=== PATIENT | female | born 1950 | race Caucasian/White ===

== ENCOUNTER 2020-08-24 06:46 | Inpatient (IN) | payer MEDICARE, OTHER ==
[2020-08-20 15:36] VITALS: BMI 32.4
[2020-08-24] MEDS ORDERED: Vancomycin 1.5 GRAM/300 ML BAG ONE (08:03)
[2020-08-24] MEDS ORDERED: Tranexamic Acid 1,000 MG/10 ML VIAL ONE ×2 (08:03→12:37)
[2020-08-24] MEDS ORDERED: Sodium Chloride 0.9% 100 ML ONE (08:03)
[2020-08-24] MEDS ORDERED: Fentanyl 100 MCG/2 ML VIAL ONE ×3 (08:43→12:24)
[2020-08-24] MEDS ORDERED: EPINEPHrine 1 MG/ML AMP ONE (08:43)
[2020-08-24] MEDS ORDERED: Midazolam HCl 2 mg/2 ml Vial ONE (08:43)
[2020-08-24] MEDS ORDERED: Fentanyl 100 MCG/2 ML VIAL IV PRN (09:35)
[2020-08-24] MEDS ORDERED: Bupivacaine PF 0.5% 30 ML VIAL ONE (09:38)
[2020-08-24] MEDS ORDERED: Promethazine HCl 25 MG/ML VIAL IM PRN ×2 (09:45→10:07)
[2020-08-24] MEDS ORDERED: Ondansetron PF 4 MG/2 ML Vial IVP PRN ×2 (09:45→10:07)
[2020-08-24] MEDS ORDERED: Ropivacaine HCl/PF 250 ML in Premix Bag 1 BAG NERVE BLCK SCH (09:45)
[2020-08-24] MEDS ORDERED: HYDROcodone/Acetaminophen 10/325 mg Tablet PO PRN (09:45)
[2020-08-24] MEDS ORDERED: traMADol HCl 50 MG TAB PO PRN ×2 (09:45)
[2020-08-24] MEDS ORDERED: Zolpidem Tartrate 5 MG TAB PO PRN ×2 (09:45→10:07)
[2020-08-24] MEDS ORDERED: Ketorolac Tromethamine 30 MG/ML VIAL ONE (09:50)
[2020-08-24] MEDS ORDERED: Dexamethasone 20 MG/5 ML VIAL ONE (09:50)
[2020-08-24] MEDS ORDERED: PROPOFOL 200 MG/20 ML VIAL ONE (09:50)
[2020-08-24] MEDS ORDERED: PHENYLEPHRINE-NS 100 MCG/ML 10 ML SYRINGE ONE (09:50)
[2020-08-24] MEDS ORDERED: Rocuronium Bromide 10 MG/ML (10ML VIAL) ONE (09:50)
[2020-08-24] MEDS ORDERED: Ondansetron PF 4 MG/2 ML Vial ONE (09:50)
[2020-08-24] MEDS ORDERED: Bupivacaine HCl 0.5%/Epinephrine 1:200,000/PF 30 ml Vial ONE (09:50)
[2020-08-24] MEDS ORDERED: Ropivacaine 2% HCl/PF (20 MG/10 ML VIAL) ONE (09:50)
[2020-08-24] MEDS ORDERED: diphenhydrAMINE 25 MG CAP PO PRN (10:07)
[2020-08-24] MEDS ORDERED: Acetaminophen 325 MG TAB PO PRN (10:07)
[2020-08-24] MEDS ORDERED: Tranexamic Acid 1,000 MG in Sodium Chloride 0.9% 100 ML IVPB SCH (10:15)
--- NOTE | 2020-08-24 12:19 | OP ---
DATE OF PROCEDURE: 08/24/2020 VEHICLE COST ENGINEER: Wm Simons PA-C. The temporary administrative assistant surgeon was present throughout the procedure to include the approach, placement of new implants, and closure of the knee. PREOPERATIVE DIAGNOSIS: Left knee osteoarthrosis. POSTOPERATIVE DIAGNOSIS: Left knee osteoarthrosis. PROCEDURE: Left total knee replacement using Ferdinand pinless navigation. ANESTHESIA: She had general anesthetic. She also had a preoperative block. BLOOD LOSS: Minimal. COMPLICATIONS: None. TOURNIQUET TIME: DISPOSITION: She went to recovery room in stable condition. IMPLANTS: To the left knee include Melvi Triathlon total knee system. The femur was a size 5 cruciate retaining femur. We used a size 5 primary tibial baseplate. We used a 5 x 9 mm CS-X3 tibial bearing, and we used a 29 x 9 X3 patella implant. INDICATIONS: This is a 70-year-old female who has failed nonoperative treatment for severe left knee osteoarthrosis. At this time, she wished to have her knee replaced. PROCEDURE IN DETAIL: After all appropriate consent forms were explained and signed, the patient was taken back to the operating room and at this time was given general anesthetic. Once the level of anesthesia was appropriate, a well-padded tourniquet was placed on the left leg, and the leg was then prepped and draped in standard surgical fashion. The limb was exsanguinated and tourniquet taken up to 300 mmHg. Midline incision was made with a 10 blade down through the skin and subcutaneous tissue. Bovie electrocautery was used to coagulate any brisk venous bleeding. A new blade was used to make a medial parapatellar arthrotomy. Small subperiosteal release was performed medially and excess fat pad was removed. The knee was flexed up to gain access to the femur. The femur was navigated and distal femoral resection was made. Epicondylar access was used to align our sizing jig and this was pinned in place. We sized our femur to be a 5 cruciate retaining femur. 4:1 cutting block was applied and pinned. Anterior and posterior chamfer cuts were then made. We navigated out our proximal tibia and made our proximal tibial resection. Spreaders were used to remove any posterior osteophytes off the back of the femur as well as remaining meniscal tissue. A long alignment teresa was then used to achieve correct rotation of our tibial baseplate and a size 5 was chosen. This was pinned in place. We trialed the polyethylene and a 5 x 9 mm CS-X3 tibial bearing polyethylene gave us full extension and good stability throughout range of motion. Two towel clips and a saw were used to cut our patella. Three lug nuts were drilled and 29 x 9 X3 patella was trialed which sat nicely in the trochlear groove. We then drilled our femur and punched our tibia. All components were removed. The knee was thoroughly irrigated and dried. Cement was mixed into the cement gun on the back table. Components were then placed. The knee was held out in full extension until the cement had dried. All excess bone cement was removed. Multiple #2 Vicryl stitches as well as a Quill were used to close our extensor mechanism. 0 Quill followed by a running Monoderm was then used to close the skin. Surgicel glue was then used on the skin. Once this had dried, soft tissue dressing was applied to the limb, tourniquet was let down, and the toes pinked up nicely. The patient was then awakened and taken to the recovery room in stable condition. All counts were correct at the end of the case. The patient did receive preoperative IV antibiotics. Job ID: [id number]
[2020-08-24] MEDS: Ketorolac Tromethamine 30 MG/ML VIAL IVP SCH ×3 (13:41→23:05)
[2020-08-24] MEDS: HYDROcodone/Acetaminophen 10/325 mg Tablet PO PRN (14:25)
[2020-08-24] MEDS: Sodium Chloride 0.9% 1,000 ML IV SCH ×2 (14:26→21:26)
[2020-08-24] MEDS: CEFAZOLIN 2 GM in Premix Bag 1 BAG IVPB SCH (18:44)
[2020-08-24] MEDS ORDERED: Vancomycin HCl 1.5 GM in Sodium Chloride 0.9% 250 ML 300 ML IVPB SCH (20:00)
[2020-08-24] MEDS ORDERED: Vancomycin 1.5 GRAM/300 ML BAG 1.5 GM in Premix Bag 1 BAG IVPB SCH (20:00)
[2020-08-24] MEDS: Aspirin 81 mg Enteric Coated Tablet PO SCH (20:19)
[2020-08-24] MEDS: Senokot S 8.6-50 MG TAB PO SCH (20:19)
[2020-08-24] MEDS: Ferrous Gluconate 324 MG TAB PO SCH (20:19)
[2020-08-25] MEDS: CEFAZOLIN 2 GM in Premix Bag 1 BAG IVPB SCH (02:02)
[2020-08-25] MEDS: Ketorolac Tromethamine 30 MG/ML VIAL IVP SCH ×4 (05:29→23:21)
[2020-08-25] MEDS: Levothyroxine Sodium 25 MCG TAB PO SCH (05:29)
[2020-08-25 06:15] LABS: Hemoglobin 10.5 g/dL (12.0-16.0); Mean Corpuscular HGB CONC 33.3 g/dL (32.0-36.0); Mean Corpuscular Hemoglobin 33.4 pg (27.0-31.0); Mean Platelet Volume 8.5 fL (7.4-10.4); Platelet Count 172 thou/uL (130-400); RBC Distribution Width 12.8 % (11.5-14.5); Red Blood Cell (RBC) Count 3.15 mill/uL (4.20-5.40); White Blood Cell (WBC) Count 7.5 thou/uL (4.8-10.8)
[2020-08-25] MEDS: Sodium Chloride 0.9% 1,000 ML IV SCH ×2 (06:23→16:08)
--- NOTE | 2020-08-25 08:23 | PRG ---
DATE OF SERVICE: 08/25/2020 SUBJECTIVE: Camille is a 70-year-old female, postop day 1 left total knee arthroplasty. She has no complaints. She is sitting up, eating breakfast and quite comfortable. OBJECTIVE: VITAL SIGNS: Temperature 97.7, pulse 60, respiratory rate 18 and nonlabored, blood pressure is 106/61. GENERAL: She is alert and oriented to person, place, time, situation, responsive, appropriate and conversive with examiner. EXTREMITIES: Incision is clean. No strike through. No erythema. Neurovascularly intact in left lower extremity. LABORATORY DATA: Hemoglobin and hematocrit 10.5 and 31.6. IMPRESSION: A 70-year-old female, postop day 1 left total knee arthroplasty. PLAN: Continue current care. Initiate physical therapy. Continue to monitor for pain and hemorrhage. Job ID: [id number]
[2020-08-25] MEDS: Senokot S 8.6-50 MG TAB PO SCH ×2 (08:46→20:18)
[2020-08-25] MEDS: Ferrous Gluconate 324 MG TAB PO SCH ×2 (08:47→20:18)
[2020-08-25] MEDS: Multivitamin W/ Minerals 1 TAB PO SCH (08:48)
[2020-08-25] MEDS: Furosemide 20 MG TAB PO SCH (08:48)
[2020-08-25] MEDS: Aspirin 81 mg Enteric Coated Tablet PO SCH ×2 (08:48→20:18)
[2020-08-25] MEDS: Triamterene/Hydrochlorothiazide 37.5 mg/25 mg Tablet PO SCH (08:56)
[2020-08-25] MEDS: HYDROcodone/Acetaminophen 10/325 mg Tablet PO PRN ×3 (10:39→21:42)
[2020-08-25] MEDS: Potassium Chloride 10 MEQ TAB PO SCH (11:01)
[2020-08-25] MEDS: Calcium Carbonate 500 MG ChewTAB PO PRN (23:26)
[2020-08-26] MEDS: Sodium Chloride 0.9% 1,000 ML IV SCH ×3 (04:45→22:24)
[2020-08-26] MEDS: Ketorolac Tromethamine 30 MG/ML VIAL IVP SCH (05:14)
[2020-08-26] MEDS: Levothyroxine Sodium 25 MCG TAB PO SCH (05:14)
[2020-08-26] MEDS: Calcium Carbonate 500 MG ChewTAB PO PRN ×2 (05:18→17:48)
[2020-08-26 06:29] LABS: Hemoglobin 10.1 g/dL (12.0-16.0); Mean Corpuscular HGB CONC 33.4 g/dL (32.0-36.0); Mean Corpuscular Hemoglobin 33.6 pg (27.0-31.0); Mean Platelet Volume 9.7 fL (7.4-10.4); Platelet Count 118 thou/uL (130-400); RBC Distribution Width 12.9 % (11.5-14.5); Red Blood Cell (RBC) Count 3.01 mill/uL (4.20-5.40); White Blood Cell (WBC) Count 6.4 thou/uL (4.8-10.8)
[2020-08-26] MEDS: Ferrous Gluconate 324 MG TAB PO SCH ×2 (07:58→20:59)
[2020-08-26] MEDS: Triamterene/Hydrochlorothiazide 37.5 mg/25 mg Tablet PO SCH (07:58)
[2020-08-26] MEDS: Aspirin 81 mg Enteric Coated Tablet PO SCH ×2 (07:58→20:59)
[2020-08-26] MEDS: Furosemide 20 MG TAB PO SCH (07:58)
[2020-08-26] MEDS: Potassium Chloride 10 MEQ TAB PO SCH (07:59)
[2020-08-26] MEDS: Multivitamin W/ Minerals 1 TAB PO SCH (07:59)
[2020-08-26] MEDS: HYDROcodone/Acetaminophen 10/325 mg Tablet PO PRN ×3 (08:00→19:39)
[2020-08-26] MEDS: Senokot S 8.6-50 MG TAB PO SCH ×2 (13:41→20:59)
[2020-08-27] MEDS: HYDROcodone/Acetaminophen 10/325 mg Tablet PO PRN ×3 (02:45→13:35)
[2020-08-27] MEDS: Levothyroxine Sodium 25 MCG TAB PO SCH (05:25)
[2020-08-27 05:37] LABS: Hemoglobin 9.7 g/dL (12.0-16.0); Mean Corpuscular HGB CONC 33.4 g/dL (32.0-36.0); Mean Corpuscular Hemoglobin 33.4 pg (27.0-31.0); Mean Corpuscular Volume 99.8 fL (78.0-98.0); Platelet Count 152 thou/uL (130-400); RBC Distribution Width 12.7 % (11.5-14.5); Red Blood Cell (RBC) Count 2.89 mill/uL (4.20-5.40); White Blood Cell (WBC) Count 6.3 thou/uL (4.8-10.8)
[2020-08-27] MEDS: Sodium Chloride 0.9% 1,000 ML IV SCH (07:27)
--- NOTE | 2020-08-27 08:34 | PRG ---
DATE OF SERVICE: 08/27/2020 SUBJECTIVE: Camille is a 70-year-old female, postop day #3 from a left total knee arthroplasty. Her discharge was held yesterday due to persistent pain. She is tolerating a regular diet and she feels a little better today. OBJECTIVE: VITAL SIGNS: Temperature 98.1, pulse 68, respiratory rate 12 and nonlabored, blood pressure 107/67. GENERAL: She is alert and oriented to person, place, time, and situation. Responsive and appropriate with examiner. Conversive and polite and pleasant. EXTREMITIES: Incision is clean. No strike through. No erythema. She is neurovascularly intact in the left lower extremity. LABORATORY DATA: Hemoglobin and hematocrit of 9.7 and 28.9. IMPRESSION: A 70-year-old female, postop day #1, left total knee arthroplasty. PLAN: Continue current care. We will revisit the patient today in anticipation of discharge this afternoon. Job ID: [id number]
[2020-08-27] MEDS: Triamterene/Hydrochlorothiazide 37.5 mg/25 mg Tablet PO SCH (09:07)
[2020-08-27] MEDS: Senokot S 8.6-50 MG TAB PO SCH (09:07)
[2020-08-27] MEDS: Aspirin 81 mg Enteric Coated Tablet PO SCH (09:07)
[2020-08-27] MEDS: Potassium Chloride 10 MEQ TAB PO SCH (09:07)
[2020-08-27] MEDS: Ferrous Gluconate 324 MG TAB PO SCH (09:07)
[2020-08-27] MEDS: Multivitamin W/ Minerals 1 TAB PO SCH (09:07)
[2020-08-27] MEDS: Furosemide 20 MG TAB PO SCH (09:08)
[2020-08-27 14:18] VITALS: BP 135/83; TEMP 98
== END 2020-08-27 14:19 | disposition home health service (06) | DRG 470 ==
LOC: SDC 06:46 → SJJU 10:07 → SDC 08-26 13:55
PROVIDERS: ADMIT Orthopaedic Surgery; ATTEND Orthopaedic Surgery
PROC: 0SRD0J9 Replacement of Left Knee Joint with Synthetic Substitute, Cemented, Open Approach (ICD-10-PCS; principal; 2020-08-24)
PROC: 8E0YXBZ Computer Assisted Procedure of Lower Extremity (ICD-10-PCS; 2020-08-24)
DX: M17.12 Unilateral primary osteoarthritis, left knee (principal); I35.1 Nonrheumatic aortic (valve) insufficiency; E03.9 Hypothyroidism, unspecified; F41.9 Anxiety disorder, unspecified; K57.90 Diverticulosis of intestine, part unspecified, without perforation or abscess without bleeding; Z79.899 Other long term (current) drug therapy; Z88.5 Allergy status to narcotic agent; Z90.49 Acquired absence of other specified parts of digestive tract; Z90.710 Acquired absence of both cervix and uterus; Z82.49 Family history of ischemic heart disease and other diseases of the circulatory system; Z79.890 Hormone replacement therapy
CPT/HCPCS: 36415; 85027; C1713; C1776; J0171; J0690; J1100; J1885; J2250; J2405; J2704; J2795; J3010; J3370; J3490; S0020

== ENCOUNTER 2023-08-11 10:27 | Outpatient (CLI) | payer MEDICARE, OTHER | END 2023-08-11 10:28 | disposition home or self-care (01) | LOC: LABBT 10:27 | PROVIDERS: ATTEND Orthopaedic Surgery | DX: Z01.818 Encounter for other preprocedural examination (principal); M17.11 Unilateral primary osteoarthritis, right knee | CPT/HCPCS: 71046; 80048; 81003; 85025; 85610; 85730; 86850; 86900; 86901; 87081; 93005; 93010 ==

== ENCOUNTER 2023-08-16 05:46 | Observation (INO) | payer MEDICARE, OTHER ==
[2023-08-11 11:08] VITALS: BMI 33.3
[2023-08-11 12:25] LABS: #Eosinphils 0.2 10x3/uL (0.0-0.5); #Monocytes 0.5 10x3/uL (0.0-1.1); #Neutrophils 2.6 10x3/uL (1.5-8.4); %Basophils 0.7 % (0.0-2.0); %Eosinophils 4.2 % (0.0-6.0); %Lymphocytes 21.8 % (18.0-47.0); %Monocytes 11.9 % (0.0-10.0); %Neutrophils 61.2 % (40.0-75.0); Hematocrit 40.2 % (34.9-44.5); Hemoglobin 13.5 g/dL (12.0-15.5); Mean Corpuscular HGB CONC 33.6 g/dL (32.0-36.0); Mean Corpuscular Hemoglobin 32.5 pg (27.0-33.0); Mean Corpuscular Volume 96.9 fl (81.6-98.3); Mean Platelet Volume 11.5 fl (7.4-10.4); Platelet Count 247 10x3/uL (150-450); RBC Distribution Width 12.8 % (11.5-14.5); Red Blood Cell (RBC) Count 4.15 10x6/uL (3.90-5.03); White Blood Cell (WBC) Count 4.3 10x3/uL (3.5-10.5)
[2023-08-11 12:30] LABS: Bilirubin Neg (Negative); Blood, Urine Negative (Negative); Clarity Clear (Clear); Glucose, Urine (Dipstick) Normal (Negative); Ketone, Urine Negative (Negative); Leukocyte Negative (Negative); Nitrite Negative (Negative); Protein, Urine (Dipstick) Negative (Neg-Trace); Urobilinogen Normal mg/dL (Less than 2); pH, Urine 6.5 (5.0-9.0)
[2023-08-11 12:46] LABS: PTT 25.6 sec (22.0-33.0); Prothrombin Time 10.5 sec (9.5-12.1)
[2023-08-11 12:53] LABS: Anion Gap 17 mmol/L (10-20); BUN (Urea Nitrogen) 16 mg/dL (9.8-20.1); Calc. Creatinine Clearance 0 mL/min (70-130); Calcium 9.4 mg/dL (7.8-10.44); Carbon Dioxide 28 mmol/L (23-31); Chloride 99 mmol/L (98-107); Estimated GFR 80; Glucose 84 mg/dL (83-110); Potassium 3.8 mmol/L (3.5-5.1); Sodium 140 mmol/L (136-145)
[2023-08-16] MEDS ORDERED: Sodium Chloride 0.9% 100 ML ONE ×3 (06:06→10:07)
[2023-08-16] MEDS ORDERED: Vancomycin (BATCH) 1.5 GM/300 ML BAG ONE (06:06)
[2023-08-16] MEDS ORDERED: Tranexamic Acid 1,000 MG/10 ML VIAL ONE ×2 (06:06→10:06)
[2023-08-16] MEDS ORDERED: fentaNYL PF 100 MCG/2 ML SYRINGE ONE (06:22)
[2023-08-16] MEDS ORDERED: PROPOFOL 20 ML ONE (06:23)
[2023-08-16] MEDS ORDERED: Lidocaine 1% PF 5 ML VIAL ONE (06:23)
[2023-08-16] MEDS ORDERED: Dexamethasone 20 MG/5 ML VIAL ONE (06:23)
[2023-08-16] MEDS ORDERED: Ondansetron PF 4 MG/2 ML Vial ONE (06:23)
[2023-08-16] MEDS ORDERED: Midazolam HCl 2 mg/2 ml Vial ONE (06:23)
[2023-08-16] MEDS ORDERED: Lidocaine 2% 6 ML (Jelly) SYR ONE (06:24)
[2023-08-16] MEDS ORDERED: Bupivacaine PF 0.5% 30 ML VIAL ONE ×2 (06:33→07:55)
[2023-08-16] MEDS ORDERED: CEFAZOLIN 2 GM VIAL ONE (07:11)
[2023-08-16] MEDS ORDERED: traMADol HCl 50 MG TAB PO PRN ×2 (07:15)
[2023-08-16] MEDS ORDERED: Zolpidem Tartrate 5 MG TAB PO PRN ×2 (07:15→09:56)
[2023-08-16] MEDS ORDERED: Promethazine HCl 25 MG/ML VIAL IM PRN ×3 (07:15→09:56)
[2023-08-16] MEDS ORDERED: Ropivacaine 0.2% 550 ML 550 ML NERVE BLCK SCH (07:15)
[2023-08-16] MEDS ORDERED: EPINEPHrine 1 MG/ML VIAL ONE (07:55)
[2023-08-16] MEDS ORDERED: fentaNYL 50 mcg/mL 1 mL Vial ONE ×4 (08:27→10:54)
[2023-08-16] MEDS ORDERED: Ondansetron HCl/PF 4 MG/2 ML Vial IVP PRN (09:41)
[2023-08-16] MEDS ORDERED: HYDROmorphone 2 MG/ML VIAL SLOW IVP PRN (09:41)
[2023-08-16] MEDS ORDERED: Acetaminophen 325 MG TAB PO PRN (09:56)
[2023-08-16] MEDS ORDERED: diphenhydrAMINE 25 MG CAP PO PRN (09:56)
[2023-08-16] MEDS ORDERED: Ondansetron PF 4 MG/2 ML Vial IVP PRN (09:56)
[2023-08-16] MEDS ORDERED: Vancomycin 1.5 GM in Sodium Chloride 0.9% 250 ML 300 ML IVPB SCH (10:00)
[2023-08-16] MEDS ORDERED: Tranexamic Acid 1,000 MG in Sodium Chloride 0.9% 100 ML IVPB SCH (10:00)
[2023-08-16] MEDS ORDERED: HYDROmorphone 0.5 MG/0.5 ML SYRINGE ONE ×2 (10:16→10:30)
[2023-08-16] MEDS ORDERED: Ketorolac Tromethamine 30 MG (1 mL) VIAL ONE (11:27)
[2023-08-16] MEDS: Ketorolac Tromethamine 30 MG (1 mL) VIAL IVP SCH (11:30)
[2023-08-16] MEDS: Ondansetron PF 4 MG/2 ML Vial IVP PRN (13:37)
[2023-08-16] MEDS: fentaNYL 50 mcg/mL 1 mL Vial SLOW IVP PRN (13:37)
[2023-08-16] MEDS: Sodium Chloride 0.9% 1,000 ML IV SCH (13:39)
[2023-08-16] MEDS: CEFAZOLIN 2 GM in Sodium Chloride 0.9% 100 ML IVPB SCH (15:40)
[2023-08-16] MEDS: Vancomycin (BATCH) 1.5 GM in Premix 1 BAG IVPB SCH (17:48)
[2023-08-16] MEDS: Ferrous Gluconate 324 MG TAB PO SCH (19:56)
[2023-08-16] MEDS: Aspirin 81 mg Enteric Coated Tablet PO SCH (19:56)
[2023-08-16] MEDS: Senokot S 8.6-50 MG TAB PO SCH (19:56)
[2023-08-16] MEDS: HYDROcodone/Acetaminophen 10/325 mg Tablet PO PRN (19:57)
[2023-08-17] MEDS: HYDROcodone/Acetaminophen 10/325 mg Tablet PO PRN (00:09)
[2023-08-17 04:19] LABS: Hematocrit 34.2 % (36.0-47.0); Hemoglobin 11.1 g/dL (12.0-16.0); Mean Corpuscular HGB CONC 32.5 g/dL (32.0-36.0); Mean Corpuscular Hemoglobin 32.9 pg (27.0-31.0); Mean Corpuscular Volume 101.5 fl (78.0-98.0); Mean Platelet Volume 11.2 fL (7.4-10.4); Platelet Count 183 10x3/uL (130-400); Red Blood Cell (RBC) Count 3.37 mill/uL (4.20-5.40); White Blood Cell (WBC) Count 8.7 10x3/uL (4.8-10.8)
[2023-08-17] MEDS: Triamterene/Hydrochlorothiazide 37.5 mg/25 mg Tablet PO SCH (08:52)
[2023-08-17] MEDS: Furosemide 20 MG TAB PO SCH (08:52)
[2023-08-17] MEDS: Levothyroxine Sodium 25 MCG TAB PO SCH (08:52)
[2023-08-17] MEDS: Multivitamin W/ Minerals 1 TAB PO SCH (08:52)
[2023-08-17] MEDS ORDERED: Non-Formulary Item 1 EACH (Potassium Gluconate [Potassium Gluconate] 99 MG Tablet) PO SCH (09:00)
[2023-08-17] MEDS ORDERED: Non-Formulary Item 1 EACH (Multivit With Calcium,Iron,Min [Multiple Vitamins For Women] 1 PO SCH (09:00)
[2023-08-17 13:20] VITALS: BP 114/73; TEMP 97.9
== END 2023-08-17 13:25 | disposition home or self-care (01) ==
LOC: SDC 05:46 → SURG A 09:56
PROVIDERS: ADMIT Orthopaedic Surgery; ATTEND Orthopaedic Surgery
PROC: 0SRC0JZ Replacement of Right Knee Joint with Synthetic Substitute, Open Approach (ICD-10-PCS; principal; 2023-08-16)
DX: M17.11 Unilateral primary osteoarthritis, right knee (principal); M24.561 Contracture, right knee; E03.9 Hypothyroidism, unspecified; Z90.710 Acquired absence of both cervix and uterus; Z90.49 Acquired absence of other specified parts of digestive tract; Z96.652 Presence of left artificial knee joint; Z79.899 Other long term (current) drug therapy; Z79.890 Hormone replacement therapy
CPT/HCPCS: 27447; 80048; 81003; 85025; 85027; 85610; 85730; 86850; 86900; 86901; 87081; 96365; 96375; 96376; 97110 ×2; 97116 ×2; 97530 ×2; A4306; C1713; C1776; G0378 ×2; J0171; J3010; J3370; 36415; J0665; J1100; J1170; J1885; J2250; J2405; J2704; J2795; J3490; J7050